=== PATIENT | male | born 1955 | race Hispanic/Latino ===

== ENCOUNTER 2018-08-27 12:49 | Day surgery (SDC) | payer OTHER ==
[~2018-08-27 12:49] MED LIST: ANCEF/STERILE WATER 2 GM/20 ML IV NR
--- NOTE | 2018-08-27 13:57 | Anesthesia Consultation ---
Anesthesia Consult and Med Hx Date of service: 08/27/18 - Airway Anesthetic Teeth Evaluation: Good ROM Head & Neck: Adequate Mental/Hyoid Distance: Adequate Mallampati Class: Class II Intubation Access Assessment: Probably Good - Pulmonary Exam CTA: Yes - Cardiac Exam Cardiac Exam: RRR - Pre-Operative Health Status ASA Pre-Surgery Classification: ASA3 Proposed Anesthetic Plan: General - Pulmonary Hx Smoking: Yes (1 PPD X 30 YRS) Hx Asthma: No Hx Respiratory Symptoms: No Hx Sleep Apnea: Yes (compliant with CPAP) - Cardiovascular System Hx Hypertension: Yes (took HCTZ/losartan this morning) Hx Heart Attack/AMI: No Hx Percutaneous Transluminal Coronary Angioplasty (PTCA): No - Central Nervous System Hx Seizures: No CVA: No - Gastrointestinal Hx Gastroesophageal Reflux Disease: No - Endocrine Hx Renal Disease: No Hx Liver Disease: No Hx Insulin Dependent Diabetes: No Hx Non-Insulin Dependent Diabetes: No Hx Thyroid Disease: No - Other Systems Hx Alcohol Use: Yes (2-3 BEERS PER DAY) Hx Cancer: No - Additional Comments Anesthesia Medical History Comments: No hx anesthetic complications.
--- NOTE | 2018-08-27 13:57 | Anesthesia Day of Surgery ---
Anesthesia Day of Surgery - Day of Surgery Patient Examined: Yes Patient H&P Reviewed: Yes Patient is NPO: Yes
[2018-08-27] MEDS ORDERED: DILAUDID IV PRN (13:58)
[2018-08-27] MEDS ORDERED: VERSED IV NR (14:00)
[2018-08-27] MEDS ORDERED: LACTATED RINGERS 1,000 ML IV SCH (14:00)
[2018-08-27] MEDS ORDERED: SUBLIMAZE ONE ×2 (14:59→15:34)
[2018-08-27] MEDS ORDERED: DIPRIVAN 10 MG/ML IV ONE (14:59)
[2018-08-27] MEDS ORDERED: ZOFRAN ONE (14:59)
[2018-08-27] MEDS ORDERED: DECADRON ONE (14:59)
[2018-08-27] MEDS ORDERED: ADRENALIN ONE (15:17)
[2018-08-27] MEDS ORDERED: NACL 0.9% IR ONE (16:00)
[2018-08-27] MEDS ORDERED: DILAUDID ONE (16:15)
--- NOTE | 2018-08-27 16:17 | Short Stay Summary ---
Short Stay Documentation Date of service: 08/27/18 - History H&P: obtained from office - Allergies and Medications Current Medications: Allergies No Known Allergies Allergy (Verified 08/19/18 11:44) Home Medications Medication Instructions Recorded Confirmed Last Taken Type Aspirin [Aspir-Low] 81 mg PO DAILY 08/19/18 08/27/18 08/20/18 09:00 History Ibuprofen [Advil 100 MG tab] 200 mg PO Q6H PRN 08/19/18 08/27/18 08/20/18 09:00 History Losartan/Hydrochlorothiazide 1 tab PO QDAY 08/19/18 08/27/18 08/27/18 07:00 History [Hyzaar 50-12.5 TAB] Active Medications Cefazolin Sodium (Ancef/Sterile Water 2 Gm/20 Ml) 2 gm IV PREOP NR Stop: 08/27/18 23:59 Hydromorphone HCl (Dilaudid) 0.5 mg IV Q10MIN PRN PRN Reason: Pain , Severe (7-10) Stop: 08/28/18 06:00 Lactated Ringer's (Lactated Ringers) 1,000 mls @ 75 mls/hr IV DIRECT SUSIE Last Admin: 08/27/18 14:15 Dose: 75 mls/hr Documented by: Midazolam HCl (Versed) 2 mg IV PREOP NR Stop: 08/27/18 23:59 Last Admin: 08/27/18 14:23 Dose: 2 mg Documented by: - Brief post op/procedure progress note Date of procedure: 08/27/18 Pre-op diagnosis: left hydrocele Post-op diagnosis: same Procedure: hydrocelectomy, scrotaplasty with drain Anesthesia: JULITOA Surgeon: POOJA FELDER Estimated blood loss: minimal Pathology: list (sac & skin) Specimen disposition: to lab Condition: stable - Hospital course [facility] - Disposition Condition at discharge: Stable Disposition: [id number]-01 TO HOME OR SELFCARE Short Stay Discharge Plan Follow up with: TONIA ROCHA JR, MD [Primary Care Provider] - 7 Days
[2018-08-27] MEDS ORDERED: NORCO 5/325 PO PRN (16:58)
--- NOTE | 2018-08-27 16:58 | Post Anesthesia Evaluation ---
- Post Anesthesia Evaluation Patient Participated: Yes Airway Patent: Yes Stable Respiratory Function: Yes Nausea/Vomiting: No Temp > 96.8F: Yes Pain Manageable: Yes Adequeate Hydration: Yes Anesthesia Complications: No
[2018-08-27] MEDS ORDERED: NORCO 5/325 ONE (16:59)
[2018-08-27 20:16] VITALS: BP 138/76
--- NOTE | 2018-09-01 18:12 | Operative Report ---
PREOPERATIVE DIAGNOSIS: Hydrocelectomy and scrotoplasty. POSTOPERATIVE DIAGNOSES: Hydrocelectomy and scrotoplasty. SURGEON: Juan Tam MD ANESTHESIA: General. ESTIMATED BLOOD LOSS: Minimal. FLUIDS: Crystalloid. COMPLICATIONS: No complications. INDICATIONS: This patient is a 62-year-old gentleman seen in the office with large left mass. Ultrasound revealed a hydrocele, presents for surgical intervention. Due to the size of the sac, it was discussed he may need a scrotoplasty for better cosmetic result. DESCRIPTION OF PROCEDURE: The patient was taken to the operative suite, placed in a supine position. After adequate general anesthesia, placed in a supine position, prepped and draped in a sterile fashion. Scrotal skin was marked on the left side, wedge excision of skin was removed. Sharp dissection was taken down to the tunica vaginalis, which was brought out and the incision of the tunica vaginalis was opened. Serosanguineous fluid was evacuated. Normal appearing testicle, the hydrocele sac was removed and sent for routine pathologic evaluation along with the skin. Copious irrigation was performed. Adequate hemostasis was achieved. Whipstitch using 2-0 Vicryl in a running fashion was used for the remnant tunica vaginalis. The dartos layer was then reapproximated and closed with 2-0 Vicryl in a running fashion. A half-inch [place] drain was brought out through a separate stab incision and tied in position with 2-0 Vicryl in interrupted fashion. Skin was closed with 2-0 Vicryl in interrupted fashion as well. Mesh pants and fluffs were placed. The patient tolerated the procedure well and was extubated and taken to recovery room in stable condition. JOB# [id number] RA/SALVADOR
== END 2018-08-27 17:50 | disposition home or self-care (01) ==
LOC: OR 12:49
PROVIDERS: ATTEND Urology
DX: N43.3 Hydrocele, unspecified (principal); E78.00 Pure hypercholesterolemia, unspecified; F17.210 Nicotine dependence, cigarettes, uncomplicated; I10 Essential (primary) hypertension; G47.30 Sleep apnea, unspecified; Z98.890 Other specified postprocedural states; Z72.89 Other problems related to lifestyle; Z79.899 Other long term (current) drug therapy
CPT/HCPCS: 36415; 55040; 55175; 84132; 88302; J0690; J1100; J1170; J2250; J2405; J2704; J3010; J7120; J0171